=== PATIENT | female | born 1955 | race Caucasian/White ===

== ENCOUNTER 2020-05-05 16:50 | Inpatient (IN) | payer OTHER ==
[~2020-05-05] VITALS: Ht 157.5 cm; Wt 85.7 kg
[~2020-05-05 16:50] MED LIST: AMOXICILLIN500 M2 PO; FLONASE ALLERG9.9 ML NAS; TESSALON PERLE100 M1 PO; ZYRTEC10 MG PO
[2020-05-05 17:00] VITALS: BP 146/71
[2020-05-05 17:10] VITALS: BP 132/98
--- NOTE | 2020-05-05 17:17 | NUR ---
ADMITTED TO ER WITH C/O CHEST PAIN FOR A FEW WEEKS.. BUT DESCRIBES THE PAIN BEHIND THE RIGHT SHOULDER/ NONRADIATING WITH NO SOB.. PER THE PATIENT SHE HAS HAD A HEADACHE INTERMITTENTLY FOR A FEW DAYS BUT TODAY IT WAS AT THE RIGHT SIKHISM THAT GOT SO BAD SHE HAD WHAT SHE CALLED A "BLACKOUT" BUT NEVER LOST CONSCIOUSNESS. IV PLACED AND LABS DRAWN ALONG WITH CXR DONE. DR EMMANUEL UPDATED ON CONDITION. EKG ALREADY DONE.
[2020-05-05 17:34] LABS: BASO # 0.1 10*3/uL (0.0-0.1); BASO % 0.9 % (0.0-1.0); EOS # 0.3 10*3/uL (0.0-0.4); HEMATOCRIT 40.9 % (37.0-47.0); LYMPH # 1.1 10*3/uL (1.3-4.4); LYMPH % 19.9 % (27.0-41.0); MEAN CORPUSCULAR HGB 30.1 pg (27.0-31.0); MEAN PLATELET VOLUME 8.9 fl (9.6-12.3); MONO # 0.5 10*3/uL (0.1-1.0); NEUT # 3.6 10*3/uL (2.3-7.9); NEUT % 64.8 % (47.0-73.0); PLATELET COUNT AUTOMATED 324 10*3/uL (130-400); RED BLOOD COUNT 4.35 10*6/uL (4.10-5.10); RED CELL DISTRI WIDTH 13.4 % (0-14.5); WHITE BLOOD COUNT 5.6 10*3/uL (4.8-10.8)
[2020-05-05 17:52] LABS: ALBUMIN 3.5 gm/dl (3.1-4.5); BUN 23 mg/dl (7-24); CHLORIDE 112 mmol/L (98-107); POTASSIUM 4.2 mmol/L (3.5-5.1); SGOT/AST 17 IU/L (3-35); SGPT/ALT 19 U/L (12-78); SODIUM 142 mmol/L (136-145); TOTAL PROTEIN 7.7 gm/dL (6.4-8.2)
[2020-05-05 17:54] LABS: ALKALINE PHOSPHATASE 72 U/L (45-117); TROPONIN I < 0.015 ng/ml (<0.045)
[2020-05-05 18:49] VITALS: BP 128/71
[2020-05-05 21:00] VITALS: BP 136/62
--- NOTE | 2020-05-05 21:00 | NUR ---
Time: 2099 A 65 year old FEMALE admitted to 5E under services of MARY NELSON DO. Pt. arrived via bed from ER. Chief complaint: CHEST PAIN, SYNCOPE. PATIENT ORIENTED TO ROOM 504. PATIENT FORMS REVIEWED AND COMPLETED. CALL LIGHT SYSTEM EXPLAINED AND DEMONSTRATED. FREDIS VARGAS
--- NOTE | 2020-05-05 21:21 | NUR ---
DR. VALADEZ NOTIFIED THAT ORTHOSTATIC BLOOD PRESSURE WERE POSITIVE AND PATIENT BECAME DIZZY DURING INTERVENTION. ORDERS RECEIVED. NOTIFIED THAT MED REC IS UP-TO-DATE.
--- NOTE | 2020-05-05 21:26 | NUR ---
MESSAGE LEFT WITH NIKOLAY FROM CARDIOLOGY ANSWERING SERVICE. CALL BACK NUMBER PROVIDED.
[2020-05-06] VITALS: BP 115/60
[2020-05-06 06:28] LABS: BASO # 0.1 10*3/uL (0.0-0.1); BASO % 0.8 % (0.0-1.0); EOS # 0.4 10*3/uL (0.0-0.4); EOS % 6.1 % (1.0-4.0); HEMATOCRIT 39.9 % (37.0-47.0); LYMPH # 1.9 10*3/uL (1.3-4.4); LYMPH % 32.8 % (27.0-41.0); MEAN CELL VOLUME 96.6 fl (81.0-99.0); MEAN CORPUSCULAR HGB CONC 31.1 g/dl (33.0-37.0); MEAN PLATELET VOLUME 9.2 fl (9.6-12.3); MONO # 0.7 10*3/uL (0.1-1.0); MONO % 11.1 % (3.0-9.0); NEUT # 2.9 10*3/uL (2.3-7.9); PLATELET COUNT AUTOMATED 276 10*3/uL (130-400); RED BLOOD COUNT 4.13 10*6/uL (4.10-5.10); RED CELL DISTRI WIDTH 13.6 % (0-14.5); WHITE BLOOD COUNT 5.9 10*3/uL (4.8-10.8)
[2020-05-06 06:38] LABS: BUN 22 mg/dl (7-24); CHLORIDE 112 mmol/L (98-107); CHOLESTEROL 212 mg/dL (<200); CREATININE 0.86 mg/dL (0.55-1.02); HDL CHOLESTEROL 71 mg/dl (40-60); LDL CHOLESTEROL 124 mg/dL (9-159); POTASSIUM 3.8 mmol/L (3.5-5.1); SODIUM 140 mmol/L (136-145); TRIGLYCERIDES 86 mg/dl (<150); VLDL CHOLESTEROL 17 mg/dL (6-40)
[2020-05-06 08:00] VITALS: BP 108/60; BP 145/63
[2020-05-06 11:06] LABS: URINE AMPHETAMINES < 1000 (1000ng/ml); URINE BARBITURATES < 200 (200ng/ml); URINE BENZODIAZEPINES < 200 (200ng/ml); URINE CANNABINOIDS (THC) < 50 (50ng/ml); URINE COCAINE < 300 (300ng/ml); URINE METHADONE < 300 (300ng/ml); URINE OPIATES < 300 (300ng/ml); URINE PHENCYCLIDINE < 25 (25ng/ml)
[2020-05-06 12:00] VITALS: BP 118/70
--- NOTE | 2020-05-06 13:30 | NUR ---
Machinist [employer]otype in to talk to patient in her Room. Patient states that she lives at home with her daughter Ivan. There are no Steps in the Home. Pt. states they live in a Trailer Physician: Pt. does not have a Primary Care Physician and has seen a Physician at the [facility] in [place] Previously. 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 Patient has working utilities: Yes DME: None Follow-up physician's appointment after d/c: Pt. will need Follow up with requests to follow at [facility] in [place]. No Preference on Provider. Does patient want to access PORTAL?: No, No Computer Access. Discharge plan is for Pt. to return home to live with her Daughter. Pt. has no home care needs. Will need set up for follow up appointments and has requested [facility]. Denies Need for Home Services. JOSE ANGELO
--- NOTE | 2020-05-06 14:36 | NUR ---
PATIENT RESTING IN BED, DENIES ANY PAIN, CHEST PAIN, SOB. CALL LIGHT IS WITHIN REACH.
--- NOTE | 2020-05-06 15:30 | NUR ---
TOOK OVER CARE OF PT AT THIS TIME. PT RESTING IN BED. RESPIRATIONS EASY AND UNLABORED ON ROOM AIR. NO S/S OF DISTRESS. NO COMPLAINTS VOICED. PT DENIES NEEDING ANYTHING AT THIS TIME. WILL CONTINUE TO MONITOR PT. CALL LIGHT IN REACH.
[2020-05-06 16:00] VITALS: BP 128/59
--- NOTE | 2020-05-06 16:03 | NUR ---
Shift chart check completed.
[2020-05-06 20:00] VITALS: BP 120/48
--- NOTE | 2020-05-06 20:00 | NUR ---
PATIENT ASSESSMENT COMPLETED AT THIS TIME WITHOUT INCIDENT. PATIENT DENIES ANY CHEST PAIN, SHORTNESS OF BREATH OR OTHER DISTRESS AT THIS TIME. A&O X3, CALL LIGHT WITHIN REACH, WILL CONTINUE TO MONITOR.
--- NOTE | 2020-05-06 22:59 | NUR ---
24 HOUR CHART CHECK COMPLETE
[2020-05-07] VITALS: BP 125/55
--- NOTE | 2020-05-07 00:05 | NUR ---
PATIENT RESTING IN BED IN A POSITION OF COMFORT AT THIS TIME WATCHING TV. DENIES ANY PAIN OR DISTRESS AT THIS TIME, CALL LIGHT WITHIN REACH. WILL CONTINUE TO MONITOR.
--- NOTE | 2020-05-07 04:00 | NUR ---
PATIENT REMAINS RESTING IN BED, RESPIRATIONS EASY AND NON-LABORED, NO SIGNS OF DISTRESS NOTED. CALL LIGHT WITHIN REACH, WILL CONTINUE TO MONITOR.
[2020-05-07 08:00] VITALS: BP 126/48
[2020-05-07 12:00] VITALS: BP 140/63
[2020-05-07 16:00] VITALS: BP 122/56
[2020-05-07 20:00] VITALS: BP 145/57
--- NOTE | 2020-05-07 20:15 | NUR ---
PATIENT ASSESSMENT COMPLETED WITHOUT INCIDENT. PATIENT DENIES ANY PAIN OR DISTRESS AT THIS TIME. ADVISED PATIENT OF NPO STATUS AT MIDNIGHT FOR PROCEDURE IN AM. A&O X3, CALL LIGHT WITHIN REACH, WILL CONTINUE TO MONITOR.
[2020-05-08] VITALS: BP 101/53
--- NOTE | 2020-05-08 00:10 | NUR ---
PATIENT RESTING IN BED IN A POSITION OF COMFORT, NO PAIN OR DISTRESS NOTED AT THIS TIME. RESPIRATIONS EASY AND NON-LABORED. A&O X3, CALL LIGHT WITHIN REACH, WILL CONTINUE TO MONITOR.
--- NOTE | 2020-05-08 04:00 | NUR ---
PATIENT REMAINS RESTING IN BED WITH EYES CLOSED, NO PAIN OR DISTRESS NOTED AT THIS TIME, RESPIRATIONS REMAIN EASY AND NON-LABORED AT THIS TIME. CALL LIGHT WITHIN REACH.
[2020-05-08 08:00] VITALS: BP 109/61
--- NOTE | 2020-05-08 09:30 | NUR ---
CM in to see patient. She is currently not in her room. She is having a stress test. Will follow up at a later time.
--- NOTE | 2020-05-08 10:43 | NUR ---
INFORMED SIGNED CONSENT OBTAINED FOR A LEXISCAN STRESS TEST WITH DR PINEDA. RESTING EKG NSR HR 62 BP 110/64 POOR R WAVE PROGRESSION. LUNGS CLEAR POX 100% PT COMPLETED ONE MINUTE OF A LEXISCAN PROTOCOL WITH PT RECEIVING LEXISCAN 0.4MG IV OVER [address] CHANGES NOTED. PT C/O NAUSEA WITH INJECTION. LAST RECOVERY HR OF 73 BP 108/64. PT IN STABLE CONDITION, AWAITING NUCLEAR IMAGES.
--- NOTE | 2020-05-08 11:17 | NUR ---
PHYSICAL THERAPY Physical therapy evaluation attempted. Patient out of room for stress test. Will try again at a later time/date. Thank you. Perlita Caldwell,PT,DPT
[2020-05-08 13:00] VITALS: BP 117/69
[2020-05-08] MEDS ORDERED: ASPIRIN CHEWABL81 M1 PO (15:23)
[2020-05-08] MEDS ORDERED: ATORVASTATIN CA80 M1 PO (15:23)
--- NOTE | 2020-05-08 15:37 | NUR ---
DISCHARGE INSTRUCTION GIVEN TO PT AND SHE VERBALIZED GOOD UNDERSTANDING HEP LOCK REMOVED AWAITING DTR TO SYSTEMS SECURITY CONSULTANT
[2020-05-08 16:00] VITALS: BP 145/70
--- NOTE | 2020-05-08 17:37 | NUR ---
DC TO HOME
== END 2020-05-08 17:37 | disposition home or self-care (01) | DRG 206 ==
LOC: ED 16:50 → EDHOLD 20:26 → 5E 20:26
PROVIDERS: Emergency Medicine; Student in an Organized Health Care Education/Training Program; ADMIT Emergency Medicine
PROC: 3E073KZ Introduction of Other Diagnostic Substance into Coronary Artery, Percutaneous Approach (ICD-10-PCS; principal; 2020-05-08)
PROC: 4A02XM4 Measurement of Cardiac Total Activity, External Approach (ICD-10-PCS; principal; 2020-05-08)
DX: M94.0 Chondrocostal junction syndrome [Tietze] (principal); E86.0 Dehydration; R47.1 Dysarthria and anarthria; R73.9 Hyperglycemia, unspecified; Z68.34 Body mass index [BMI] 34.0-34.9, adult; R00.1 Bradycardia, unspecified; E78.5 Hyperlipidemia, unspecified; E83.41 Hypermagnesemia; E66.01 Morbid (severe) obesity due to excess calories; E87.8 Other disorders of electrolyte and fluid balance, not elsewhere classified; Z80.9 Family history of malignant neoplasm, unspecified; Z82.49 Family history of ischemic heart disease and other diseases of the circulatory system; Z91.040 Latex allergy status; Z91.018 Allergy to other foods; Z79.899 Other long term (current) drug therapy

== ENCOUNTER 2021-04-08 20:12 | Emergency (ER) | payer OTHER ==
[~2021-04-08] VITALS: Ht 157.4 cm; Wt 81.6 kg
[~2021-04-08 20:12] MED LIST changes: +ASPIRIN CHEWABL81 M1 PO; +ATORVASTATIN CA80 M1 PO
[2021-04-08] MEDS ORDERED: SEPTDS PO (22:38)
[2021-04-08] MEDS ORDERED: IBUPROFEN600 MG PO (22:38)
== END 2021-04-08 23:25 | disposition home or self-care (01) ==
LOC: ED 20:12
DX: S61.254A Open bite of right ring finger without damage to nail, initial encounter (principal); Z79.899 Other long term (current) drug therapy; Z79.82 Long term (current) use of aspirin; W50.3XXA Accidental bite by another person, initial encounter; Y93.89 Activity, other specified; Y92.128 Other place in nursing home as the place of occurrence of the external cause; Y99.0 Civilian activity done for income or pay

== ENCOUNTER 2021-04-11 09:17 | Emergency (ER) | payer OTHER ==
[~2021-04-11] VITALS: Wt 81.6 kg
[~2021-04-11 09:17] MED LIST changes: +IBUPROFEN600 MG PO; +SEPTDS PO
[2021-04-12 08:08] LABS: HEPATITIS B SURFACE AB Non Reactive (.)
== END 2021-04-11 10:07 | disposition home or self-care (01) ==
LOC: ED 09:17
PROVIDERS: Emergency Medicine
DX: S61.254A Open bite of right ring finger without damage to nail, initial encounter (principal); Z79.2 Long term (current) use of antibiotics; Z79.899 Other long term (current) drug therapy; Z79.82 Long term (current) use of aspirin; W50.3XXA Accidental bite by another person, initial encounter; Y93.89 Activity, other specified; Y92.128 Other place in nursing home as the place of occurrence of the external cause; Y99.0 Civilian activity done for income or pay

== ENCOUNTER 2022-03-06 12:59 | Emergency (ER) | payer MEDICARE ==
[~2022-03-06] VITALS: Wt 81.6 kg
[2022-03-06 13:29] LABS: BASO # 0.1 10*3/uL (0.0-0.1); EOS # 0.1 10*3/uL (0.0-0.4); EOS % 1.5 % (1.0-4.0); HEMATOCRIT 44.9 % (37.0-47.0); LYMPH # 1.1 10*3/uL (1.3-4.4); LYMPH % 18.4 % (27.0-41.0); MEAN CELL VOLUME 90.2 fl (81.0-99.0); MEAN CORPUSCULAR HGB 30.1 pg (27.0-31.0); MEAN CORPUSCULAR HGB CONC 33.4 g/dl (33.0-37.0); MEAN PLATELET VOLUME 8.9 fl (9.6-12.3); MONO # 0.7 10*3/uL (0.1-1.0); MONO % 11.2 % (3.0-9.0); NEUT # 3.9 10*3/uL (2.3-7.9); NEUT % 67.7 % (47.0-73.0); PLATELET COUNT AUTOMATED 330 10*3/uL (130-400); RED BLOOD COUNT 4.98 10*6/uL (4.10-5.10); RED CELL DISTRI WIDTH 13.1 % (0-14.5); WHITE BLOOD COUNT 5.8 10*3/uL (4.8-10.8)
[2022-03-06] MEDS ORDERED: VALTREX1000 MG PO (13:29)
[2022-03-06 13:46] LABS: ALKALINE PHOSPHATASE 72 U/L (45-117); BUN 15 mg/dl (7-24); CHLORIDE 108 mmol/L (98-107); CREATININE 1.06 mg/dL (0.55-1.02); POTASSIUM 4.5 mmol/L (3.5-5.1); SGOT/AST 14 IU/L (3-35); SGPT/ALT 15 U/L (12-78); SODIUM 138 mmol/L (136-145)
[2022-03-06 14:34] LABS: BILIRUBIN Negative (Negative); BLOOD Trace-Lysed (Negative); CLARITY Cloudy (Clear); COLOR Dark Yellow (Yellow); GLUCOSE Negative (Negative); KETONE Trace (Negative); LEUKO ESTERASE 2+ (Negative); NITRITE Negative (Negative); PH 5.5 (4.5-8.0); SPECIFIC GRAVITY 1.025 (1.001-1.030)
[2022-03-06 14:50] LABS: BACTERIA 2+
== END 2022-03-06 18:19 | disposition home or self-care (01) ==
LOC: ED 12:59
PROVIDERS: Emergency Medicine
DX: S09.90XA Unspecified injury of head, initial encounter (principal); B02.9 Zoster without complications; R51.9 Headache, unspecified; R50.9 Fever, unspecified; Z79.899 Other long term (current) drug therapy; W22.8XXA Striking against or struck by other objects, initial encounter; Y93.89 Activity, other specified; Y92.89 Other specified places as the place of occurrence of the external cause; Y99.9 Unspecified external cause status

== ENCOUNTER 2023-08-29 16:19 | Emergency (ER) | payer MEDICARE ==
[~2023-08-29] VITALS: Ht 157.4 cm; Wt 86.2 kg
[~2023-08-29 16:19] MED LIST changes: +VALTREX1000 MG PO
[2023-08-29 21:33] LABS: BASO % 0.4 % (0.0-1.0); EOS % 0.1 % (1.0-4.0); HEMATOCRIT 45.6 % (37.0-47.0); LYMPH # 0.8 10*3/uL (1.3-4.4); MEAN CELL VOLUME 91.8 fl (81.0-99.0); MEAN CORPUSCULAR HGB 30.6 pg (27.0-31.0); MEAN CORPUSCULAR HGB CONC 33.3 g/dl (33.0-37.0); MEAN PLATELET VOLUME 8.5 fl (9.6-12.3); MONO # 0.9 10*3/uL (0.1-1.0); MONO % 8.5 % (3.0-9.0); NEUT # 8.4 10*3/uL (2.3-7.9); NEUT % 82.8 % (47.0-73.0); PLATELET COUNT AUTOMATED 373 10*3/uL (130-400); RED BLOOD COUNT 4.97 10*6/uL (4.10-5.10); RED CELL DISTRI WIDTH 13.2 % (0-14.5); WHITE BLOOD COUNT 10.2 10*3/uL (4.8-10.8)
[2023-08-29 21:55] LABS: ACT PARTIAL THROMBO TIME 27.6 SECONDS (20.0-32.1)
[2023-08-29 21:57] LABS: ALKALINE PHOSPHATASE 84 U/L (46-116); BUN 13 mg/dl (9-23); CHLORIDE 100 mmol/L (98-107); LIPASE 37 U/L (12-53); SGPT/ALT 7 U/L (5-49)
[2023-08-29 22:42] LABS: BILIRUBIN Negative (Negative); BLOOD 2+ (Negative); CLARITY Cloudy (Clear); COLOR Dark Yellow (Yellow); GLUCOSE Negative (Negative); KETONE 1+ (Negative); LEUKO ESTERASE 1+ (Negative); NITRITE Negative (Negative); SPECIFIC GRAVITY >= 1.030 (1.001-1.030)
[2023-08-29 22:54] LABS: BACTERIA 1+; EPITHELIAL CELLS 16-20; RBC 21-30 rbc/hpf (0-2); WBC 31-40 wbc/hpf (0-5)
[2023-08-30] MEDS ORDERED: CIPRO500 MG PO (01:21)
== END 2023-08-30 01:31 | disposition home or self-care (01) ==
LOC: ED 16:19
PROVIDERS: Internal Medicine
DX: N39.0 Urinary tract infection, site not specified (principal); R19.7 Diarrhea, unspecified; E78.5 Hyperlipidemia, unspecified; R10.2 Pelvic and perineal pain; R11.2 Nausea with vomiting, unspecified; Z20.822 Contact with and (suspected) exposure to COVID-19

== ENCOUNTER 2024-06-07 15:00 | Emergency (ER) | payer MEDICARE ==
[~2024-06-07] VITALS: Ht 157.4 cm; Wt 84.8 kg
[~2024-06-07 15:00] MED LIST changes: +CIPRO500 MG PO
== END 2024-06-07 16:54 | disposition home or self-care (01) ==
LOC: ED 15:00
DX: S63.501A Unspecified sprain of right wrist, initial encounter (principal); I80.01 Phlebitis and thrombophlebitis of superficial vessels of right lower extremity; W19.XXXA Unspecified fall, initial encounter; Y93.89 Activity, other specified; Y92.009 Unspecified place in unspecified non-institutional (private) residence as the place of occurrence of the external cause; Y99.8 Other external cause status